=== PATIENT | male | born 1990 | race Caucasian/White ===

== ENCOUNTER 2022-10-07 15:20 | Emergency (ER) | payer SELFPAY ==
[2022-10-07 15:35] VITALS: BP 142/90; PULSE 76; RESP 16; TEMP 98.2; BMI 26.2
[2022-10-07 18:03] LABS: BASO % 0.7 % (0-2.0); EOS % 1.4 % (0-4.5); HEMATOCRIT 41.9 % (35.4-49); HEMOGLOBIN 14.1 GM/dL (11.7-16.9); LYMPH % 35.9 % (8-40); MCH 31.9 pg (25.7-33.7); MCHC 33.6 g/dl (32.0-35.9); MONO % 10.1 % (3.8-10.2); NEUT % 51.9 % (42.8-82.8); PLATELET COUNT 312 10^3/uL (134-434); RBC 4.41 M/mm3 (4.00-5.60); RDW 13.4 % (11.9-15.9); WHITE BLOOD COUNT 7.7 K/mm3 (4.0-10.0)
[2022-10-07 18:22] LABS: CHLORIDE 108 mmol/L (98-107); SODIUM 143 mmol/L (136-145)
[2022-10-07 18:24] LABS: ALBUMIN 3.8 g/dl (3.4-5.0); CALCIUM 8.6 mg/dL (8.5-10.1)
[2022-10-07 18:25] LABS: ANION GAP 5 MMOL/L (8-16); BLOOD UREA NITROGEN 13.9 mg/dL (7-18); CO2 30 mmol/L (21-32); GLUCOSE,RANDOM 90 mg/dL (74-106)
[2022-10-07 18:27] LABS: CREATININE 0.8 mg/dL (0.55-1.3)
[2022-10-07 18:28] LABS: SGOT/AST 20 U/L (15-37); SGPT/ALT 35 U/L (13-61)
[2022-10-07] MEDS ORDERED: PIPERACILLIN/TAZOB 3.375 GM 3.375 GM in DEXTROSE 5%-WATER - 50 ML IVPB ONE (18:28)
[2022-10-07] MEDS ORDERED: VANCOMYCIN 1 GM in D5W (PRE-DOCKED) 1,000 MG/250 ML (RESTRICTED TO ID ONLY IVPB ONE (18:28)
[2022-10-07 18:29] LABS: BILIRUBIN,TOTAL 0.2 mg/dL (0.2-1); TOT PROT 6.5 g/dl (6.4-8.2)
[2022-10-07 18:31] LABS: ALK PHOS 48 U/L (45-117)
[2022-10-07 18:52] LABS: ERYTHROCYTE SEDIMENTATION RATE 2 mm/hr (0-10)
[2022-10-07] MEDS ORDERED: PIPERACILLIN/TAZOB 3.375 GM 3.375 GM/50 ML BAG IVPB ONE (19:16)
[2022-10-07] MEDS ORDERED: VANCOMYCIN/WATER FOR INJ (PEG) 1,000 MG/200 ML BAG IVPB ONE (19:46)
== END 2022-10-07 22:31 | disposition left against medical advice (07) ==
LOC: JER 15:20
DX: L03.115 Cellulitis of right lower limb (principal); R22.41 Localized swelling, mass and lump, right lower limb; M79.662 Pain in left lower leg; T81.41XA Infection following a procedure, superficial incisional surgical site, initial encounter; Y83.8 Other surgical procedures as the cause of abnormal reaction of the patient, or of later complication, without mention of misadventure at the time of the procedure
CPT/HCPCS: 36415; 80053; 85025; 85651; 86140; 93971-TC; 99284-25

== ENCOUNTER 2022-10-13 10:30 | Emergency (ER) | payer SELFPAY ==
[2022-10-13 10:35] VITALS: BP 153/99; PULSE 78; RESP 18; TEMP 97.7; BMI 28.7
[2022-10-13] MEDS ORDERED: BACITRACIN ZINC 15 GM TUBE TOPICAL OINTMENT TP ONE (10:50)
[2022-10-13] MEDS ORDERED: BACITRACIN ZINC 15 GM TUBE TOPICAL OINTMENT ONE (11:01)
== END 2022-10-13 11:29 | disposition home or self-care (01) ==
LOC: JERFT 10:30